=== PATIENT | male | born 1945 | race Caucasian/White ===

== ENCOUNTER 2016-08-05 09:24 | Inpatient (IN) | payer BC ==
[~2016-08-05] VITALS: Ht 175.3 cm; Wt 73.2 kg
[2016-08-05 09:40] LABS: EOSINOPHIL (%) 1.1 % (0-5); EOSINOPHIL COUNT 0.1 K/uL (0-0.3); HEMATOCRIT 43.4 % (38.0-50.0); IMMATURE GRANULOCYTE (%) 0.6 % (0.0-0.7); IMMATURE GRANULOCYTE COUNT 0.1 K/uL; INSTRUMENT ABS NEUTROPHIL CT 5.4 K/uL; LYMPHOCYTE COUNT 1.7 K/uL (1.0-2.8); MCH 30.9 PG (29.0-34.0); MCHC 33.9 G/DL (30.0-36.0); MCV 91.4 FL (86-99); MEAN PLAT.VOLUME 8.7 uM^3 (9.0-12.4); MONOCYTE (%) 9.9 % (3-12); MONOCYTE COUNT 0.8 K/uL (0-0.8); NEUTROPHIL (%) 67.3 % (45-76); NEUTROPHIL COUNT 5.4 K/uL (1.8-6.4); PLATELET COUNT 287 K/uL (156-360); RBC DIS.WIDTH-CV 12.9 % (11.8-14.6); RBC DIS.WIDTH-SD 43.2 % (39-53); RED BLOOD COUNT 4.75 M/uL (4.00-5.50); WHITE BLOOD COUNT 8.1 K/uL (4.1-10.2)
[2016-08-05 09:47] LABS: PTT 24.7 (25-32)
[2016-08-05 10:03] LABS: TROP-I INTERPRETATION NEGATIVE; TROPONIN-I < 0.01 ng/mL (0.0-0.30)
[2016-08-05 10:11] LABS: AMYLASE 34 IU/L (1-118); CHLORIDE 107 mEq/L (99-109); POTASSIUM 4.2 mEq/L (3.7-5.4); SODIUM 141 mEq/L (136-147)
[2016-08-05 10:13] LABS: GLUCOSE 101 mg/dL (70-99)
[2016-08-05 10:14] LABS: ANION GAP 11 MEQ/L (2-14)
[2016-08-05 10:16] LABS: SERUM ETHYL ALCOHOL < 10 mg/dL
[2016-08-05 10:17] LABS: GFR ESTIMATE (CALCULATED) > 59 mL/min/
[2016-08-05 10:18] LABS: UREA NITROGEN (BUN) 19 mg/dL (9-23)
[2016-08-05 10:19] LABS: ADD MIUA? NO; BILIRUBIN NEGATIVE; BLOOD NEGATIVE; COLOR YELLOW ((YELLOW)); GLUCOSE (STRIP) NEGATIVE; KETONES NEGATIVE; LEUKOCYTES NEGATIVE; NITRITE NEGATIVE; PROTEIN (STRIP) NEGATIVE; SPECIFIC GRAVITY 1.011 (1.000-1.030); UCUL ADDED? NO; UROBILINOGEN 0.2 MG/DL (0.2-1.0)
[2016-08-05 10:20] LABS: LIPASE 38 U/L (1.0-51.0)
[2016-08-05 10:35] LABS: AMPHETAMINE NEGATIVE (500 ng/mL); BARBITURATES NEGATIVE (200 ng/mL); BENZODIAZEPINES NEGATIVE (150 ng/mL); COCAINE NEGATIVE (150 ng/mL); INTERNAL CONTROLS VALID? YES; METHADONE NEGATIVE (200 ng/mL); METHAMPHETAMINE NEGATIVE (500 ng/mL); OPIATES (MORPHINE) NEGATIVE (100 ng/mL); OXYCODONE NEGATIVE (100 ng/mL); PHENCYCLIDINE NEGATIVE (25 ng/mL); PROPOXYPHENE NEGATIVE (300 ng/mL); THC CANNABINOIDS NEGATIVE (50 ng/mL); TRICYCLIC ANTIDEPRESSANTS NEGATIVE (300 ng/mL)
[2016-08-05] MEDS ORDERED: VENLAFAXINE HC150 M1 PO (11:27)
[2016-08-05] MEDS ORDERED: METOPROLOL SUCC25 MG PO (11:27)
[2016-08-05] MEDS ORDERED: LEVOTHYROXINE50 MCG PO (11:28)
[2016-08-05] MEDS ORDERED: CALCIUM 600 +1 EAC4 PO (11:28)
[2016-08-05] MEDS ORDERED: VITAMIN C1000 MG PO (11:29)
[2016-08-05] MEDS ORDERED: ASPIR 8181 M1 PO (11:29)
[2016-08-05] MEDS ORDERED: SAW PALMETTO450 MG PO (11:29)
[2016-08-05 11:38] LABS: HDL CHOLESTEROL 33 MG/DL (Desirable>=40); LDL CHOLESTEROL 141 mg/dL (Desirable<100); NON-HDL CHOLESTEROL 176 mg/dL (Desirable<160); TOTAL CHOLESTEROL 209 mg/dL (Desirable<200); TRIGLYCERIDES 174 MG/DL (Normal: <150)
[2016-08-05 12:29] VITALS: BP 137/74
[2016-08-05 15:52] VITALS: BP 136/72
[2016-08-05 16:53] LABS: TROP-I INTERPRETATION NEGATIVE; TROPONIN-I < 0.01 ng/mL (0.0-0.30)
[2016-08-05 19:44] VITALS: BP 127/74
[2016-08-05 22:13] LABS: TROP-I INTERPRETATION NEGATIVE; TROPONIN-I < 0.01 ng/mL (0.0-0.30)
[2016-08-06 00:16] VITALS: BP 124/71
[2016-08-06 03:54] VITALS: BP 143/76
[2016-08-06 08:39] VITALS: BP 145/89
[2016-08-06] MEDS ORDERED: ATORVASTATIN CA40 MG PO (11:05)
[2016-08-06 11:59] VITALS: BP 157/77
[2016-08-06 15:05] LABS: Estimated Average Glucose 117 mg/dL (70-123); HEMOGLOBIN A1c (GLYCOHEMOGLOB) 5.7 % HGB (Below 5.7)
== END 2016-08-06 13:00 | disposition home or self-care (01) | DRG 69 ==
LOC: EME 09:24 → 5SOUTH 10:40 → EDOF 10:40 → 5SOUTH 12:20
PROVIDERS: Emergency Medicine; Internal Medicine
DX: G45.9 Transient cerebral ischemic attack, unspecified (principal); R47.01 Aphasia; R29.810 Facial weakness; R47.81 Slurred speech; I10 Essential (primary) hypertension; J43.9 Emphysema, unspecified; J47.9 Bronchiectasis, uncomplicated; M47.812 Spondylosis without myelopathy or radiculopathy, cervical region; M25.78 Osteophyte, vertebrae; M48.02 Spinal stenosis, cervical region; G93.89 Other specified disorders of brain; M62.81 Muscle weakness (generalized); F32.9 Major depressive disorder, single episode, unspecified; E03.9 Hypothyroidism, unspecified; I25.2 Old myocardial infarction; Z87.891 Personal history of nicotine dependence; Z09 Encounter for follow-up examination after completed treatment for conditions other than malignant neoplasm
CPT/HCPCS: 70450; 70496; 70498; 70551; 80048; 80061; 81003; 82150; 83036; 83690; 84443; 84484; 85025; 85610; 85730; 86900; 86901; 93005; G0480; J1650